=== PATIENT | male | born 1960 | race Caucasian/White ===

== ENCOUNTER 2016-09-17 11:33 | Emergency (ER) | payer MEDICAID ==
[~2016-09-17] VITALS: Ht 160 cm; Wt 78.0 kg
[2016-09-17 11:35] VITALS: Ht 160 cm; Wt 78.0 kg
[2016-09-17] MEDS ORDERED: LIDOCAINE 1% (MDV) 20 ML INJ SC ONE (14:30)
--- NOTE | 2016-09-17 14:34 | RADRPT ---
PROCEDURE: Left hand series CLINICAL INDICATION: Laceration. Pain TECHNIQUE: 3 views. COMPARISON: None FINDINGS: No acute fractures are noted. Joint spaces are well maintained. No erosions are noted. There is normal bone mineralization. There is swelling of the distal second digit. Small vague faint densities are noted in the soft tis sues adjacent to the middle phalanx of the second digit and foreign bodies are not excluded. IMPRESSION: 1. No bony abnormalities are identified. 2. Questionable small faint foreign bodies in the soft tissues adjacent to the middle phalanx of th e left second digit. RPTAT: [place] .Keaton Power MD, MD Date Time Electronically viewed and signed by .Keaton Power MD, on 09/17/2016 14:34 .G/
[2016-09-17] MEDS ORDERED: IBUP-1542 PO (14:46)
--- NOTE | 2016-09-17 14:55 | ERD ---
ER Documentation Chief Complaint Date/Time DATE: 09/17/16 TIME: 14:53 Chief Complaint LEFT INDEX LAC HPI Patient is a 56-year-old male with no medical problems who presents with a laceration. He has a laceration to his left second finger. He was working today and a piece of wood cut him while he was working. His tetanus shot was given 6 months ago. He has no limitations to range of motion. This happened just prior to arrival. He has no other complaints or injuries. ROS All systems reviewed and are negative except as per history of present illness. Medications Home Meds Active Scripts Ibuprofen* (Motrin*) 600 Mg Tab, 600 MG PO Q6H Y for PAIN AND OR ELEVATED TEMP, #30 TAB Prov:ROSA MANZO MD 09/17/16 PMhx/Soc Medical and Surgical Hx: pt denies Medical Hx, pt denies Surgical Hx Hx Alcohol Use: Yes Hx Substance Use: No Hx Tobacco Use: No Smoking Status: Never smoker FmHx Family History: No diabetes Physical Exam Vitals Vital Signs Date Time Temp Pulse Resp B/P Pulse Ox O2 Delivery O2 Flow Rate FiO2 09/17/16 11:35 98.1 89 18 139/78 99 Physical Exam Const: No acute distress Head: Atraumatic Eyes: Normal Conjunctiva ENT: Normal External Ears, Nose and Mouth. Neck: Full range of motion..~ No meningismus. Resp: Clear to auscultation bilaterally Cardio: Regular rate and rhythm, no murmurs Abd: Soft, non tender, non distended. Normal bowel sounds Skin: Laceration on the dorsum of the left second digit Back: No midline or flank tenderness Ext: No cyanosis, or edema, capillary refill is normal in all fingers Neur: Awake and alert, no loss of sensation to the distal fingers Psych: Normal Mood and Affect Results 24 hrs Current Medications Medications (Trade) Dose Ordered Sig/Thania Route PRN Reason Start Time Stop Time Status Last Admin Dose Admin Lidocaine (Xylocaine 1% (Mdv) 20 ml) 20 ml ONCE ONCE SC 09/17/16 14:30 09/17/16 14:31 DC Procedures/MDM PROCEDURE: Left hand series CLINICAL INDICATION: Laceration. Pain TECHNIQUE: 3 views. COMPARISON: None FINDINGS: No acute fractures are noted. Joint spaces are well maintained. No erosions are noted. There is normal bone mineralization. There is swelling of the distal second digit. Small vague faint densities are noted in the soft tissues adjacent to the middle phalanx of the second digit and foreign bodies are not excluded. IMPRESSION: 1. No bony abnormalities are identified. 2. Questionable small faint foreign bodies in the soft tissues adjacent to the middle phalanx of the left second digit. RPTAT: [place] .Keaton Power MD, MD Date Time Electronically viewed and signed by .Keaton Power MD, MD on 09/17/2016 14: 34 Laceration Repair by me: Anesthesia: 1% lidocaine without epinephrine digital block Location: Left second finger Tendon/Joint/Nerves: No injury Foreign body: None detected after copious irrigation and exploration Technique: Simple Interrupted Sutures Complexity: No subcutaneous sutures/mucosal repair/ edge excision Post Closure Length: 3 cm Patient's bleeding was easily controlled in the department and there is no indication of anemia. No evidence of compartment syndrome, neurologic injury, vascular injury, open joint, tendon laceration, or foreign body. Patient is appropriate for outpatient follow up. 48 hour wound check. Scar minimization instructions given. Please note that the patient had copious normal saline irrigation to washout any foreign bodies prior to laceration repair. There is no sign of infection at this time. Tetanus is up-to-date. The patient will need close follow-up with a primary doctor within 2 days for wound check and will need suture removal in 7-10 days. Departure Diagnosis: Primary Impression: Laceration Condition: Fair Patient Instructions: Laceration, Hand [facility] Usted se hannah hecho un examen mdico de control que le indica que no est en garrison condicin que requiera tratamiento urgente en el Departamento de Emergencia. Un estudio ms profundo y el tratamiento de wayne condicin pueden esperar sin ningn riesgo hasta que usted sea atendida/o en el consultorio de wayne mdico o garrison cl sujata. Es responsabilidad suya arreglar garrison violeta para el seguimiento del tremayne. MANEJO DE CONDICIONES NO URGENTES EN EL FUTURO 1) Si usted tiene un mdico de atencin primaria: Usted debera llamar a wayne mdico de atencin primaria antes de venir al departamento de emergencia. Despus de las horas de consultorio, wayne doctor o wayne asociado/a est disponible por telfono. El mdico o enfermero de jan en el servicio telefnico puede asesorarle por asher medio para atender el problema, o tremayne contrario se puede programar garrison violeta. 2) Si usted no tiene un mdico de atencin primaria: Llame al mdico o clnica de referencia que aparece abajo leila las horas de consultorio para hacer garrison violeta para que le vean. CLINICAS: [facility] [phone] [facility] [phone] [facility] [phone] [address] [facility] [facility] [phone] [facility]. [place] [phone] [facility] [phone] [address] Additional Instructions: Llame al doctor MAANA y trevor garrison VIOLETA PARA DENTRO DE 1-2 ROBERTS.Dgale a la secretaria que nosotros le instruimos hacer esta violeta.Avise o llame si wayne condicin se empeora antes de la violeta. Regresa aqui si peor o no mejor. ROSA MANZO MD Sep 17, 2016 14:55
[2016-09-17 15:50] VITALS: BP 159/100; PULSE 79; RESP 24; TEMP 98.3
== END 2016-09-17 15:50 | disposition home or self-care (01) ==
LOC: FTE 11:33
DX: S61.211A Laceration without foreign body of left index finger without damage to nail, initial encounter (principal); W22.8XXA Striking against or struck by other objects, initial encounter; Y92.9 Unspecified place or not applicable
CPT/HCPCS: 12002; 73130; Z7502; Z7610